=== PATIENT | female | born 1990 | race Caucasian/White ===

== ENCOUNTER 2016-10-05 12:38 | Emergency (ER) | payer MEDICARE, MEDICAID ==
[~2016-10-05] VITALS: Ht 149.9 cm; Wt 58.0 kg
[2016-10-05] MEDS ORDERED: IPRATROPIUM BROMIDE (0.02%) 0.5MG/2.5ML NEB HHN STA (13:35)
[2016-10-05] MEDS ORDERED: PREDNISONE 20MG TABLET PO STA (13:35)
[2016-10-05] MEDS ORDERED: ALBUTEROL (0.083%) 2.5MG/3ML NEB HHN STA (13:35)
[2016-10-05 14:24] LABS: HCG SCREEN NEGATIVE
[2016-10-05 15:48] VITALS: BP 110/78
== END 2016-10-05 18:14 | disposition home or self-care (01) ==
LOC: ER 15:21
DX: J45.909 Unspecified asthma, uncomplicated (principal); J06.9 Acute upper respiratory infection, unspecified; J02.9 Acute pharyngitis, unspecified; R09.81 Nasal congestion
CPT/HCPCS: 71010; 81025; 84703; 94640; 99285; J7512; J7611